=== PATIENT | female | born 1985 | race Two or more races ===

== ENCOUNTER → 2024-09-02 | Outpatient (CLI) | payer MEDICAID, SELFPAY ==
--- NOTE | 2024-09-02 14:30 | XR_ITS ---
Examination: Screening digital mammography, bilateral Computer aided detection 3-D breast Tomosynthesis, bilateral Date and time of exam: 125, 2:58 PM Comparisons: Baseline exam Indications: Screening Technique: Nonmagnified MLO, CC views of the breasts to been obtained, reconstructed from 3-D Tomosynthesis images. R2 computer aided detection program utilized for evaluation of suspicious masses and/or abnormal calcifications. 3-D Tomosynthesis images obtained. Technologist: Findings: The breasts are heterogeneously dense, which may obscure small masses. Asymmetry upper left breast 4 cm from the nipple on the MLO view. Otherwise, no No evidence of abnormal masses or suspicious calcifications. Impression: Left breast asymmetry as above. Spot compression views and possible ultrasound evaluation BI-RADS category 0: Incomplete assessment; need additional imaging evaluation
== END | disposition home or self-care (01) ==
PROVIDERS: PCP Physician Assistant; Visit Provider Physician Assistant
DX: Z12.31 Encounter for screening mammogram for malignant neoplasm of breast (principal); N64.89 Other specified disorders of breast
CPT/HCPCS: 77063; 77067

== ENCOUNTER → 2024-10-01 | Outpatient (CLI) | payer MEDICAID, SELFPAY ==
--- NOTE | 2024-10-01 | XR_ITS ---
Examination: Diagnostic digital mammography, unilateral, left Computer aided detection 3-D breast Tomosynthesis, unilateral Date and time of exam: October 01, 2024 1513 hours INDICATIONS: Mammogram September 02, 2024 asymmetry upper left breast 4 cm from the nipple on the MLO view Technique: Nonmagnified MLO, CC views of the left breast have been obtained, reconstructed from 3-D Tomosynthesis images. R2 computer aided detection program utilized for evaluation of suspicious masses and/or abnormal calcifications. 3-D Tomosynthesis images obtained. Findings: The breast is heterogeneously dense, which may obscure small masses Focal asymmetry upper left breast MLO view appears more dense and prominent on the current study, 10 mm Impression: BI-RADS category 0: Incomplete: Need additional imaging evaluation Awaiting left breast sonogram examination for assessment left breast
--- NOTE | 2024-10-01 14:48 | XR_ITS ---
Examination: Breast ultrasound complete, bilateral Date and time of exam: October 01, 2024 1456 hours INDICATIONS: Mammogram September 02, 2024 asymmetric density left breast 4 cm from the nipple on the MLO view Technique: Real-time grayscale ultrasonographic imaging bilateral breasts, including all 4 quadrants as well as nipple retroareolar and axillary regions. Findings: Sonographic images right breast 9:00 cyst 9 x 11 mm Sonographic images left breast Benign cysts, the largest in the 12:00 position 9 x 7 mm No solid nodules IMPRESSION: BI-RADS Category 2: Benign findings
== END | disposition home or self-care (01) ==
PROVIDERS: PCP Physician Assistant; Referring Provider Physician Assistant; Visit Provider Physician Assistant
DX: R92.332 Mammographic heterogeneous density, left breast (principal); N60.01 Solitary cyst of right breast; N60.02 Solitary cyst of left breast
CPT/HCPCS: 76641; 77061; 77065; G0279

== ENCOUNTER 2025-01-26 09:40 | Day surgery (SDC) | payer MEDICAID, SELFPAY ==
--- NOTE | 2025-01-22 07:00 | EKG_ITS ---
[facility] Test Date: 2025-01-22 Pat Name: ELEAZAR BELLAMY Department: Room: - Gender: Female Terminal Block Assembler: JUAN : 1985 Requested By: Hank Fofana Order Number: [id number] Reading MD: Hank Fofana Measurements Intervals Quentin Rate: 63 P: 14 TN: 172 QRS: 0 QRSD: 92 T: 0 QT: 417 QTc: 429 Interpretive Statements SINUS RHYTHM POSSIBLE LEFT VENTRICULAR HYPERTROPHY [VOLTAGE CRITERIA PLUS LAE OR QRS WIDENING] No previous ECG available for comparison /[id number]
[2025-01-22 11:01] LABS: Basophils # (Auto) 0.0 Thou/mm3 (0.0-0.2); Basophils % (Auto) 1 % (0-2.5); Eosinophils # (Auto) 0.1 Thou/mm3 (0.0-0.5); Eosinophils % (Auto) 2 % (0-10); Hematocrit 42.8 % (36.0-46.0); Hemoglobin 14.5 g/dL (12.0-16.0); Immature Granulocytes Auto 0.01 Thou/mm3 (0.00-0.00); Lymphocytes # (Auto) 1.6 Thou/mm3 (1.0-4.8); Lymphocytes % (Auto) 26 % (10-50); Mean Corpuscular HGB Conc 33.9 g/dl (31.0-37.0); Mean Corpuscular Hemoglobin 29.9 pg (25.0-35.0); Mean Corpuscular Volume 88 fL (80-100); Monocytes # (Auto) 0.5 Thou/mm3 (0.0-0.8); Monocytes % (Auto) 8 % (0-12); Neutrophils # (Auto) 3.9 Thou/mm3 (1.8-7.7); Neutrophils % (Auto) 64 % (37-80); Nucleated Red Blood Cell # 0.00 Thou/mm3 (0.00-0.00); Nucleated Red Blood Cell % 0 /100 WBC (0); Platelet Count 232 Thou/mm3 (140-440); RDW Standard Deviation 40.6 fL (36.4-46.3); Red Blood Count 4.85 Miln/mm3 (4.00-5.20); White Blood Count 6.1 Thou/mm3 (3.6-11.0)
[2025-01-22 11:09] LABS: Anion Gap 10 (7-16); BUN/Creatinine Ratio 18 Ratio (12-20); Blood Urea Nitrogen 14 mg/dL (9-23); Calcium 9.4 mg/dL (8.3-10.6); Carbon Dioxide 23.8 mMol/L (20.0-31.0); Chloride 106 mMol/L (98-107); Creatinine (Component) 0.8 mg/dL (0.6-1.3); Glucose 103 mg/dL (74-106); INR 1.0 (0.9-1.3); Osmolality,Calculated 279 (275-295); Partial Thromboplastin Time 26.5 Seconds (22.0-36.0); Potassium 3.6 mMol/L (3.4-5.1); Prothrombin Time 10.7 Seconds (9.0-12.2); Sodium 140 mMol/L (136-145); eGFR > 60 See Note
[2025-01-22 11:13] LABS: HCG,Qualitative Serum Negative
[2025-01-26] VITALS (12 sets, daily range): BP systolic 104–155; BP diastolic 54–79; PULSE 54–73; RESP 16–21; TEMP 36.7–36.8; O2SAT 95–99; BMI 25.7
--- NOTE | 2025-01-26 13:58 | ESOP_ITS ---
Cardiac Cath Procedure Procedure Name Date of procedure: 01/26/2025 BILL CHECKER: aHnk Fofana MD PROCEDURE PERFORMED: 1. Left heart and right heart cardiac catheterization including right, left coronary angiograms and left ventriculogram - CPT 47768 2. Ultrasound-guided access of the right radial artery and right femoral vein - CPT 84878 3. Conscious sedation for 30 minutes - CPT 58453 4. Supravalvular ascending aortography-CPT 79679 Procedure Narrative HISTORY AND INDICATIONS: 39 year old female patient with past medical history of severe aortic regurgitation, severe aortic root dilatation, dilated ascending aorta, severe AI, HTN, and anemia. Patient was recommended a left and right heart cardiac catheterization as part of the preoperative surgical workup. Nuclear stress test done recently was Abnormal myocardial perfusion study as there is decreased u ptake in the apical to mid area of the anterior segment with stress and improves with rest indicating stress induced ischemia. EF 64%. Normal TID hence patient scheduled for cardiac catheterization today. Discussed with patient risks, benefits and alternatives of performing left with coronary angiogram including the risks of bleeding, heart rate, stroke and with the procedure. Patient understands the risks and is willing to undergo the procedure. Consent provided for the same. H&P updated and consent was signed prior to the procedure DESCRIPTION OF PROCEDURE: The patient was brought to the cardiac catheterization lab and all asceptic precautions were followed. Patient was given 1 Mg of Versed and 50 mcg of fentanyl for moderate conscious sedation. 2 mL of lidocaine was given in the right wrist. The right radial artery was accessed via the ultrasound guidance as well as micropuncture technique. A 6 [place]ian glide sheath was introduced. Patient already had right antecubital vein access placed. Right antecubital vein access was cleaned appropriately and all aseptic precautions was followed and exchanged into a micropuncture catheter with the help of a micropuncture wire and then introduced and a 7 [place]ian sheath into the antecubital vein access with the help of a J-wire. A 6 [place]-Seda catheter was used to direct catheter into the right atrium with inflated balloon. Serial measurements of right atrium, right ventricle, pulmonary artery and pulmonary capillary wedge were taken severely with normal respiration as well as at end expiration as noted below. We then used a 6 [place]ian [place] catheter initially but were unable to engage the left main or the RCA. We then switched to multiple other catheters and eventually with an AL 2 we obtained a left coronary angiogram but were unable to engage successfully and the patient had 2 separate ostia for the LAD as of the LCx with a dilated a aortic root with ascending aorta. RCA could not be engaged with the other catheters and hands finally the RCA angiogram was performed the help of pigtail and and was visualized only with a root angiogram LHC findings: 1. Left ventricular ejection fraction 60-65% without any regional wall motion abnormalities. LVEDP was mildly elevated at 16 mmHg. There was significant aortic insufficiency and aortic root dilatation. 2. Right dominant circulation left main artery is a large-caliber vessel without any significant stenosis. 3. There is no left main artery and the 2 separate ostia for the LAD as well as the LCx. LAD is a large sized artery with a medium size diagonal and does not show any significant disease. 4. LCx is a large sized artery with medium OM1 and small OM2 without any significant disease. 5. RCA was visualized with the help of the root angiogram and pigtail which showed a large artery with RPDA and RPL but in no significant disease. 6. Supravalvular ascending aortogram as well as the left ventriculogram showed severe aortic regurgitation along with severe aortic root dilatation up to 5.5- 5.7 RHC findings: Mean right atrial pressure was 3 mmHg. Right ventricular pressure was 20/2 mmHg. Pulmonary artery pressure was 17/6 mmHg with a mean of 9 mmHg. Mean pulmonary capillary wedge pressure was 4 mmHg. TPG was 5 mmHg Pulmonary artery PA saturation was 71.0%.? Arterial saturation was 94.4% on room air. Cardiac output was 3.97 L/min and cardiac index was normal at 2.33 L/min/m? A radial band was used to achieve the hemostasis of the right radial artery access and manual hemostasis for the right antecubital vein. Patient will be monitored in the cardiac cardiac cath lab radiology technologist for the next 2 to 3 hours and will be sent to the telemetry floor. Patient recommended to follow-up with me in the office within 7 days after discharge. Complications: None Specimens: None Blood loss: Estimated 5 ml Summary/findings: 1. Severe aortic regurgitation: LHC showed normal coronaries without any angiographically significant obstruction and few luminal irregularities. 2. LVEF was 60-65%. LVEDP was mildly elevated at over 16 mmHg. 3. Supravalvular ascending aortogram as well as the left ventriculogram confirmed severe aortic regurgitation along with severe aortic root dilatation up to 5.5-5.7 cm 4. Normal right heart pressures with mean RA of 3 mm hg, mean PA of 9 mmhg and mean PCWP at 4 mm hg. Normal cardiac index of 2.23 L/min/m? and cardiac output of 4 L/min Recommendations: 1. Patient recommended surgical repair of the severe aortic regurgitation with severely dilated aortic root along with the ascending aortic aneurysm and probably will need Ross procedure. Discussed with the surgeon Dr. Davis who did recommended surgery at this point in previously recommended medical management until symptomatic or patient's continues to have further evaluation of the aneurysm. Patient recommended to go to the emergency department at [facility] only if she has any chest pain or shortness of breath before her surgical appointment. 2. Patient recommended not to lift more than 5 lbs for the next 7-10 days and follow up with me in my office in 7 days. Hank Fofana MD Interventional Cardiology.
[2025-01-26 14:47] LABS: O2 Saturation (Cath Lab) 71 % (91-98); O2 Saturation (Cath Lab) 94 % (91-98); Puncture Site Aortic; Puncture Site Pulmonary Artery
== END 2025-01-26 16:25 | disposition home or self-care (01) ==
PROVIDERS: Referring Provider Internal Medicine Cardiovascular Disease; Visit Provider Internal Medicine Cardiovascular Disease
PROC: (CPT 93460; principal; 2025-01-26 11:00)
DX: I35.1 Nonrheumatic aortic (valve) insufficiency (principal); I10 Essential (primary) hypertension; I71.9 Aortic aneurysm of unspecified site, without rupture; D64.9 Anemia, unspecified; R94.39 Abnormal result of other cardiovascular function study; Z01.810 Encounter for preprocedural cardiovascular examination
CPT/HCPCS: 93460; 93567; 36415; 80048; 82810; 84703; 85025; 85610; 85730; 93005; 99152; 99153; A4649; C1769; C1887; C1894; J0168; J0461; J1200; J1643; J1720; J2250; J2312; J2371; J2405; J3010; J3490; C1725